=== PATIENT | male | born 1980 | race Caucasian/White ===

== ENCOUNTER 2020-03-24 09:00 | Outpatient (CLI) | payer OTHER, SELFPAY ==
--- NOTE | 2020-03-24 09:15 | FL_ITS ---
WS: [id number] DOUBLE CONTRAST UPPER GI EXAMINATION HISTORY: K21.9 Gastro-esophageal reflux disease without esophagitis COMPARISON: None available. FLUOROSCOPY TIME: 2.9 minutes. Dormitory Keeper film reveals normal distribution of gas throughout the GI tract. No suspicious masses or calcif ications. Barium mixture traversed normally throughout the esophagus. No filling defects within the stomach. Du odenal bulb was normally distensible and pliable. No gastroesophageal reflux No hiatal hernia was demonstrated on this exam. FL/FL upper GI w air* [id number] IMPRESSION: Normal upper GI examination.
== END 2020-03-24 09:01 | disposition home or self-care (01) ==
PROVIDERS: Family Provider Nurse Practitioner Family; PCP Surgery; Visit Provider Surgery
DX: K21.9 Gastro-esophageal reflux disease without esophagitis (principal)
CPT/HCPCS: 74246

== ENCOUNTER 2020-05-07 14:40 | Outpatient (CLI) | payer OTHER, BC, SELFPAY ==
[2020-05-07 15:34] LABS: Basophils % 0.3 %; Eosinophils % 0.5 %; Hematocrit 43.3 % (42.0-52.0); Hemoglobin 14.5 g/dL (11.7-16.6); Lymphocytes # 2.6 10^3/uL (0.8-4.8); Lymphocytes % 34.1 %; Mean Corpuscular HGB Conc 33.5 g/dL (30.0-36.0); Mean Corpuscular Hemoglobin 30.1 pg (28.0-34.0); Mean Corpuscular Volume 89.8 fL (80-94); Monocytes # 0.5 10^3/uL (0.2-0.9); Monocytes % 7.1 %; Neutrophils # 4.34 10^3/uL (1.8-7.7); Neutrophils % 57.7 %; Nucleated Red Blood Cells % 0 %; Platelet Count 270 10^3/cmm (130-400); Red Blood Count 4.82 10^6/uL (4.1-5.3); Red Cell Distribution Width 12.3 % (12.1-15.1); White Blood Count 7.5 10^3/uL (4.0-10.0)
[2020-05-07 15:57] LABS: Estmated Average Glucose 154
[2020-05-07 16:12] LABS: Alanine Aminotransferase 67 U/L (0-41); Albumin Level 4.8 g/dL (3.5-5.2); Alkaline Phosphatase 81 IU/L (40-130); Aspartate Amino Transferase 44 U/L (0-40); Blood Urea Nitrogen 16 mg/dL (6-20); Carbon Dioxide 25 mmol/L (22-29); Chloride 100 mmol/L (98-107); Chol HDL Ratio 6.37 mg/dL (1.0-5.00); Cholesterol 172 mg/dL (0-200); Ferritin 357 ng/mL (30-400); Globulin 3.2 g/dL (1.3-4.6); Glomerular Filtration Rate 124.3 mL/min (90-130); Glucose 104 mg/dL (65-115); HDL Cholesterol 27 mg/dL (60-100); Iron 46 ug/dL (59-158); LDL Cholesterol Calculated 106 mg/dL (50-129); LDL HDL Ratio 3.93 RATIO (0.00-3.22); Lipase 29 U/L (13-60); Magnesium 2.2 mg/dL (1.7-2.3); Osmolality Calculated 285 mOsm/kg (285-295); Percent Saturation 12.9 % (20-50); Phosphorus 4.4 mg/dL (2.5-4.5); Sodium 137 mmol/L (136-145); Thyroid Stimulating Hormone 2.17 uIU/mL (0.27-4.20); Total Bilirubin 0.2 mg/dL (0.15-1.2); Total Iron Binding Capacity 356 mcg/dl; Triglycerides 193 mg/dL (0-150); Unsaturated Iron Binding 310 ug/dL (112-347); Vitamin B12 748 pg/mL (232-1245)
[2020-05-07 16:30] LABS: Calcium 9.9 mg/dL (8.5-10.5); Parathyroid Hormone 35.3 pg/mL (15-65)
[2020-05-07 16:40] LABS: Folate Level 12.6 ng/mL (4.5-32.2)
== END 2020-05-07 14:41 | disposition home or self-care (01) ==
LOC: LAB 14:52
PROVIDERS: PCP Surgery; Visit Provider Surgery
DX: E88.81 Metabolic syndrome and other insulin resistance (principal); E78.5 Hyperlipidemia, unspecified; E66.9 Obesity, unspecified
CPT/HCPCS: 36415; 80053; 80061; 82310; 82607; 82728; 82746; 83036; 83540; 83550; 83690; 83735; 83970; 84100; 84443; 85025; 87635

== ENCOUNTER 2020-05-13 11:18 | Inpatient (IN) | payer OTHER, BC, SELFPAY ==
[2020-05-12 12:49] VITALS: BMI 45.4
[2020-05-13] VITALS (18 sets, daily range): BP systolic 142–193; BP diastolic 76–102; PULSE 76–108; RESP 16–24; TEMP 36.4–37.2; O2SAT 91–100
[2020-05-13 07:02] LABS: Glucose Point of Care 117 mg/dL (70-110)
--- NOTE | 2020-05-13 07:02 | P.ANESASSM_ITS ---
Pre-Anesthetic Assessment Pre-Anesthetic Assessment: Height/Weight: Height 1.83 m Weight 151.953 kg Preop Diagnosis: Morbid obesity Proposed Procedure: Operation Date: 05/13/20 08:20 Proposed Procedures p Laparoscopic Gastrectomy Sleeve w/ EGD [id number] E66.01(Not Applicable) - Isma Linda MD s EGD(Not Applicable) - Isma Linda MD Familial anesthetic complications: None Was Beta Linette taken within 24 hours: N/A Last intake: NPO > 8 hrs Social: Social History: No alcohol and No tobacco Exam: Pre-Anes Outpt Exam: alert, oriented x 3, clear to auscultation bilaterally and regular rate & rhythm Airway: Cervical ROM: WNL MP: 3 Dentition: Other (missing teeth, pulled teeth) Additional comments: large neck circumference CV/HEM: Comments: 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 Says it never required surgical intervention and has has never been restricted in any activities in his life Metabolic: Metabolic: DM and Hyperlipidemia Anesthetic Plan: ASA status: 2 Anesthesia: General Risk of > 500 ml blood loss (7ml/kg in children): No PFSH Anesthesia PFSH: Medical History Diabetes Hyperlipidemia Hypertension Morbid obesity Family History Other Diabetes Hypertension Denies family history of Anesthesia complication Bleeding disorder Social History Smoking and tobacco status: never smoked Alcohol intake: current Alcohol intake frequency: holidays/special occasions only Alcohol type: beer and hard liquor Adopted: No Caregiver/support person: Yes Lives independently: Yes Household members: spouse Housing: House Marital status: service: No Current occupational status: employed Current occupational exposures/hazards: No Pets and animals: No History of recent travel: No Sexually active: Yes Judy/Yazdanism: [employer] Special judy needs: No Agree to transfusion: Yes Financial difficulty paying for basics: Decline to Answer Data Anesthesia Other Labs: Laboratory Results - last 48 hr 05/13/20 06:58 POC Glucose 117 Cardiac Studies: No Data to Display
[2020-05-13] MEDS: heparin 5,000 unit/mL INJ 1 mL 5000 UNIT SUBCUT ×2 (07:06→23:31)
[2020-05-13] MEDS: scopolamine 1.5 Patch 1 PATCH TRANSDERMA (07:06)
[2020-05-13] MEDS: sodium chloride 0.9% 1,000 ML 999 ML IV (07:06)
[2020-05-13] MEDS: pantoprazole 40 mg SDV IVP ×2 (07:33→18:26)
--- NOTE | 2020-05-13 07:49 | W.PM.OPSUD ---
Surgery/Procedure H&P Update DATE OF PROCEDURE: May 13, 2020 DATE H&P PERFORMED: 05/07/20 H&P UPDATE INFORMATION: I have reviewed H&P completed within last 30 days, I have examined patient prior to procedure and No changes to prior documentation PREOP DIAGNOSIS: Morbid obesity PRIMARY INDICATION FOR PROCEDURE: The same PLANNED PROCEDURE: Operation Date: 05/13/20 08:20 Proposed Procedures p Laparoscopic Gastrectomy Sleeve w/ EGD 11817 63002 E66.01(Not Applicable) - Isma Linda MD s EGD(Not Applicable) - Isma Linda MD
[2020-05-13] MEDS: ondansetron 2 mg/ML SDV 2 mL 4 MG IVP ×3 (07:51→17:43)
[2020-05-13] MEDS: midazolam 1 mg/mL INJ 2 mL 2 MG IVP (07:51)
[2020-05-13] MEDS: sodium chloride 0.9% 1,000 ML 30 ML IV (07:57)
--- NOTE | 2020-05-13 09:32 | SUR.OPER ---
Family Notified Of Patient's Status Via Phone.
--- NOTE | 2020-05-13 11:19 | P.OP_ITS ---
Operative Report Date of procedure: May 13, 2020 Pre-op Diagnosis: Morbid obesity Procedure Done: Laparoscopic vertical sleeve gastrectomy and intraoperative esophagogastroscopy Implants: Large piece of Surgicel towards the distal part of the stomach after taking omentum down Specimens removed/disposition: Subtotal gastrectomy status post gastric sleeve Surgeon: Isma Linda Automotive Tire Worker: Surgical yuri Boswell and Mona Chris Circulating nurses Nettie and Masood Anesthesia: General (Elmer Leslie/Dr. Moon) Estimated blood loss (mL): 50 IV fluids (mL): 1,400 Urine output (mL): 400 Condition: stable Disposition: floor Procedure: Patient was identified in holding area , appropriate pharmacologic DVT prophylaxis was given and preoperative IV fluid hydration, patient was then taken to the operating room where the patient was placed in supine position, intubated by anesthesia prophylactic antibiotics were given per protocol,Time- out was done verifying the patient's name/date of /planned procedure and destination after the procedure, all were in agreement. SCDs confirmed to be functioning, and beta melissa protocol was confirmed. A Rea catheter was inserted by the circulating nurse revealing clear urine. A foot board was applied to secure the patient while the patient is placed in reversed Trendelenburg, all pressure points were padded, and the patient was appropriately secured to the table, anesthesia was asked to rotate the table back and forth to verify that the patient is appropriately secured, and that was the case. The abdomen was prepped and draped under the usual sterile technique. A 1 cm transverse incision was made with a 15 blade scalpel approximately 15 cm below the xiphoid process and 3 cm left of the midline. A 12 mm optical trocar port was placed under direct vision into the peritoneal cavity without evidence of injury to peritoneal structures upon entry. The peritoneal cavity was insufflated with carbon dioxide gas up to 15 mmHg pressure. A 45? angle laparoscopy was placed through the port into the peritoneal cavity there was no significant blood, fluid, or evidence of intra-abdominal injury under direct visualization,Long 5 mm trocars were then used;a 12 mm trocar port was placed in the right epigastric region and a fourth 5 mm trocar port was placed in the mid epigastric region more caudad than and medial to the previous port. I lifted the omentum up to make sure there were no injuries encountered from the initial trocar insertion , and there was not. A Long 5 mm trocar port was placed in the left lateral flank and additional long 5 mm trocar was inserted midway between the left lateral flank trocar and the initial 12 mm trocar , A subxiphoid stab incision was made and dissection into the peritoneum with 5 mm obturator.A grasping laparoscopic clamp was inserted through here and clamped to the right zofia of the diaphragm to elevate The liver for the entirety of the case. Patient was then placed in the reversed Trendelenburg Following this, the greater curvature of the stomach was freed from the omentum using the harmonic scalpel. This division included the short gastric vessels proximally. This dissection was carried from approximately 4 cm-6 cm proximal to the pylorus and extending all the way up to the angle of Hiss. During this process the posterior aspect of the stomach was mobilized from the underlying peritoneum and the posterior aspect of the stomach was well exposed. With the greater curvature of the stomach exposed from within 4-6 cm of the pylorus and extending to the angle of Hiss, which also included the posterior stomach, a 40 Guatemalan standard template passed under direct vision down the esophagus, stomach, and into the first part of the duodenum by the anesthesia provider and under direct guidance and visualization by me,via the laparoscopy. Using the template 40 Guatemalan aligned along the lesser curvature of the stomach and all the way to the first part of the Duodenum,the 40 Guatemalan Bougie was used as a template the laparoscopic vertical gastric sleeve was performed starting fr om a point about 5 cm from the pylorus along the greater curvature.Using the Pulcifer Laparoscopic BRANDYN linear cutting stapler with Seam guarded enforcement, a series of jose were used to transect the stomach in a vertical fashion along the left side of the template., Care was taken not to narrow the angularis Through the entire division of the stomach using the staplers,the template was always checked to be in good place and well aligned to the lesser curvature while dividing the stomach. This was carried all the way to the angle of Hiss.Green loads were used for all stapler loads. The staple line along the remaining tubularized stomach was tested for leaks and bleeding under direct vision as the 40 Guatemalan template was removed (and there was no evidence of blood on the tip of the template) by a standard diagnostic EGD via the mouth by me after I scrubbed out,insufflation was achieved and the staple line submerged under saline, meanwhile a clamp was applied distally onto the end of the tubularized stomach to allow insufflation test for leak the clamp was held in place by my manager surgical. There was no evidence of leak .There was adequate hemostasis along the staple line.EGD was taken out at this point after deflation of the tubularized stomach. At that point I scrubbed back in; The transected partial stomach, which included the greater curvature, was removed from the peritoneum through the first 12 mm trocar site, and was sent for permanent pathology Prior to closure of the fascia. A final look laparoscopy identified no injuries. I elected to keep the large piece of Surgicel in place at the site of the dissection of the distal part of the stomach towards the greater omentum but there was no active bleeding. Noticed some devascularization towards the superior pole of the Spleen yet was stable. An interrupted #1 PDS suture on a granny needle suture passer was used to close the right epigastric and the other 12 mm trocar left of the midline fascial de fects under direct visualization. The other trocars were removed under direct vision and no evidence of bleeding was identified. The pneumoperitoneum was decompressed. All skin incisions were irrigated with saline, then closed with jose, followed by application of sterile dressings.The patient was extubated and transferred to the recovery room with normal vital signs. All counts of instruments and sponges and needles were completed at the end of the procedure I was present for the whole entire procedure
--- NOTE | 2020-05-13 11:39 | SUR.PHASEI ---
PT TO PACU EARLIER , SLEEPS WITH GOOD RESP EFFORT PT ABD LARGE SOFT WITH 6 SITES WITH BANDAIDS , UMBILICAL SITE WITH SOME DRAINAGE MARKED BUT D/I, BILAT SCDS ON , NO CREPITIS NOTED TO NECK OR SHOULDER AREA, PT NOW AWAKES AND VERBALIZED NO PAIN OR NAUSEA, PT RESPONDS APPROPRIATELY, VSS PT NOW ON 3LNC
--- NOTE | 2020-05-13 11:50 | ANE.PACU2 ---
Inpatient post-anesthesia follow up: Airway intact: Yes Vital signs: Temperature 98.7 F Pulse Rate 103 Respiratory Rate 17 Blood Pressure 148/89 Pulse Oximetry 90 Oxygen Delivery Me thod Room Air Oxygen Flow Rate 3 Fraction of Inspir ed Oxygen Hydration adequate: Yes Nausea and vomiting: No Pain level: 3 Mental status: Baseline
[2020-05-13] MEDS: sodium chloride 0.9% 1,000 ML 150 ML IV ×2 (12:09→18:28)
[2020-05-13] MEDS: morphine 4 mg/mL SDV 1 mL IVP ×4 (12:27→20:46)
--- NOTE | 2020-05-13 14:47 | PC.NURSE ---
patient ambulated in room to help with gas pain
[2020-05-13] MEDS: labetalol 5 mg/mL SDV 20mL 10 MG IVP (16:31)
--- NOTE | 2020-05-13 16:36 | ECG_ITS ---
[facility] Test Date: 2020-05-13 Pat Name: Kareem Page Department: Room: 256 Gender: Male Renewals Specialist: : 1980 Requested By: Isma Linda Order Number: [id number] Tobar MD: Rai Greene M.D. Measurements Intervals [place] Rate: 99 P: 112 CA: 221 QRS: -26 QRSD: 117 T: 104 QT: 359 QTc: 461 Interpretive Statements SINUS RHYTHM WITH FIRST DEGREE AV BLOCK BORDERLINE LEFT AXIS DEVIATION [QRS AXIS < -20] MODERATE INTRAVENTRICULAR CONDUCTION DELAY [110+ ms QRS DURATION] MODERATE T-WAVE ABNORMALITY, CONSIDER LATERAL ISCHEMIA [-0.1+ mV T WAVE IN I/aVL/V5/V6] No previous ECG available for comparison Electronically Signed On 05-13-2020 22:24:21 AUTOMOBILE REPOSSESSOR by Rai Greene M.D. [id number]
[2020-05-13 17:00] LABS: Glucose Point of Care 155 mg/dL (70-110)
[2020-05-13 17:20] LABS: Troponin(5th) Baseline 8 ng/L (0-15)
--- NOTE | 2020-05-13 17:25 | PC.NURSE ---
Family presented to nurses station with basin and explained patient had vomited blood. Bright red blood seen in basin. Patient care nurse Maria Luisa notified. vitals obtained
[2020-05-13 17:36] LABS: Hematocrit 43.3 % (42.0-52.0); Hemoglobin 14.2 g/dL (11.7-16.6)
--- NOTE | 2020-05-13 18:05 | PC.NURSE ---
At 0523 patient vomited 15ml of bright red blood. Dr Linda notified. Per Dr Linda, continue to monitor and let patient know that this can happen and assurance is the lopez. 0550 patient vomited 110ml of bright red blood. Dr Linda notified. Per Dr Linda, order Reglan 10mg IV Q6H PRN, Protonix 40mg IV BID, Promethazine 12.5mg IM once NOW. Industrial Gas Fitter put orders in.
[2020-05-13] MEDS: promethazine 25 mg/mL SDV 1 mL 12.5 MG IM (18:27)
[2020-05-13] MEDS: metoclopramide 5 mg/mL SDV 2 mL 10 MG IVP (18:27)
--- NOTE | 2020-05-13 18:36 | ECG_ITS ---
[facility] Test Date: 2020-05-13 Pat Name: Kareem Page Department: Room: 256 Gender: Male Sap Bi Architect: : 1980 Requested By: Isma Linda Order Number: [id number] Tobar MD: Rai Greene M.D. Measurements Intervals [place] Rate: 108 P: 66 MO: 202 QRS: -22 QRSD: 122 T: 113 QT: 342 QTc: 459 Interpretive Statements SINUS TACHYCARDIA BORDERLINE LEFT AXIS DEVIATION [QRS AXIS < -20] LEFT VENTRICULAR HYPERTROPHY AND ST-T CHANGE [VOLTAGE CRITERIA PLUS ST/T ABNORMALITY] Compared to ECG 05/13/2020 17:27:56 Left ventricular hypertrophy now present ST (T wave) deviation now present Sinus rhythm no longer present First degree AV block no longer present Intraventricular conduction delay no longer present T-wave abnormality no longer present Possible ischemia no longer present Electronically Signed On 05-13-2020 22:28:42 LENS ASSORTER by Rai Greene M.D. [id number]
[2020-05-13 18:39] LABS: Fibrinogen 381 mg/dL (174-498); INR 1.15 (0.8-1.2); Partial Thromboplastin Time 30.5 SECONDS (23.9-36.7)
--- NOTE | 2020-05-13 18:45 | PC.NURSE ---
Per Dr Linda, can stay at bedside.
[2020-05-13 18:58] LABS: Troponin 5 2HR 8.54 ng/L (0-15); Troponin 5 2HR Delta 0.54 ABS# (0-10)
[2020-05-13] MEDS: lisinopril 20 mg Tablet PO (19:08)
[2020-05-13 20:22] LABS: Glucose Point of Care 185 mg/dL (70-110)
[2020-05-13 22:52] LABS: Troponin 5 6HR 8.64 ng/L (0-15); Troponin 5 6HR Delta 0.64 ng/L (0-12)
[2020-05-14] VITALS (10 sets, daily range): BP systolic 142–168; BP diastolic 77–91; PULSE 93–104; RESP 16–18; TEMP 36.4–37.2; O2SAT 90–95
[2020-05-14] MEDS: morphine 4 mg/mL SDV 1 mL IVP ×4 (02:15→15:08)
[2020-05-14 04:00] LABS: Hematocrit 39.5 % (42.0-52.0); Hemoglobin 12.9 g/dL (11.7-16.6)
[2020-05-14 04:26] LABS: Anion Gap 13.8 (5-19); Blood Urea Nitrogen 12 mg/dL (6-20); Calcium 8.9 mg/dL (8.5-10.5); Carbon Dioxide 26 mmol/L (22-29); Chloride 104 mmol/L (98-107); Glomerular Filtration Rate 106.5 mL/min (90-130); Glucose 173 mg/dL (65-115); Osmolality Calculated 294 mOsm/kg (285-295); Potassium 3.8 mmol/L (3.5-5.1); Sodium 140 mmol/L (136-145)
--- NOTE | 2020-05-14 05:26 | P.PN_ITS ---
Subjective Subjective: Interval history: Patient had an episode of epigastric pain,Hypertension and 2 bouts of small amount of Hematemsis all occured arround two hours frame approxmaitley,managed by medications and work up for potentail chest pain was intatited and everything came back negative. Dr Higgins was consulted for chest pain and Hypertension and conservative meaures was continued.connor the pain triggered patient's symptoms. Overall patient had unevetful night otherwise and rested well.Good UOP and IVF dropped to a 100ml/he because the HT. Vitals/I&O/Wt Last Vital Signs Temp 98.7 F 05/14/20 04:00 Pulse 103 H 05/14/20 04:00 Resp 17 05/14/20 04:00 BP 148/89 05/14/20 04:00 Pulse Ox 90 05/14/20 04:00 05/13/20 05/13/20 05/14/20 14:59 22:59 06:59 Intake Total 1660 / 1660 947.5 / 2607.5 Output Total 1425 / 1425 800 / 2225 Balance 235 / 235 147.5 / 382.5 Weight last 48 hrs Weight 335 lb Physical Exam Narrative: EXAM NARRATIVE: Patient is conscious alert oriented X3 BMI Head and neck examination PERRLA no masses no cervical lymphadenopathy no jaundice Cardiac examination audible S1-S2 no murmurs no gallops no arrhythmias Chest is clear bilateral,abscence of Rhonchi or wheezes,no surgical emphysema Abdomen nontender nondistended soft no organomegaly guarding or rigidity/no signs of peritonitis,dry dressing in place. Extremities no cyanosis no clubbing no edema Urinary Catheter Management^: Rea: Cath Placed During This Visit: yes, but has since been removed by the nurse Reason for Continuing Indwelling Catheter: Not indwelling catheter Urinary Catheter Date of Insertion: 05/13/20 Urinary Catheter Time of Insertion: 08:35 Date Urinary Catheter Removed: 05/13/20 Time Urinary Catheter Discontinued: 11:20 Data : 05/14/20 02:49 05/14/20 02:49 A&P Assessment and plan (1) S/P laparoscopic sleeve gastrectomy: 6 AM patient is a status post laparoscopic sleeve gastrectomy 05/13/2020 We will hold off heparin for now Encourage ambulation Incentive spirometer every hour Ice chips for now We will follow on upper GI study 1030 Patient can be started on clear liquid diet Assurance and education All questions have been answered and all concerns have been addressed to patient's satisfaction. Status: Acute Attestations Medical Necessity Statement*: Inpatient hospitalization for medical and surgic al care Time Spent in Patient Care: (>than 50% of time spent in counselling and/or direct pt care on unit) . Coding Level of Care Code Acute Microsoft Exchange Architect for Chg Fwd Diagnoses S/P laparoscopic sleeve gastrectomy Z98.84
[2020-05-14] MEDS: sodium chloride 0.9% 1,000 ML 150 ML IV (05:34)
[2020-05-14] MEDS: pantoprazole 40 mg SDV IVP ×2 (06:24→16:25)
[2020-05-14] MEDS: metoclopramide 5 mg/mL SDV 2 mL 10 MG IVP (06:28)
[2020-05-14 06:41] LABS: Glucose Point of Care 172 mg/dL (70-110)
--- NOTE | 2020-05-14 07:24 | USCV_ITS ---
CamiloKareem Age: 39 Gender: M : 1980 Exam Date: 05/14/2020 10:08 Ordering Phys: Demarco Lundberg MD Technologist: Luis Burger Exam Location: [facility] [place] Indication: CHEST PAIN BP: 156 / 78 HR: 95 Rhythm: Sinus Technical Quality: Adequate MEASUREMENTS (Male / Female) Normal Values 2D ECHO LV Diastolic Diameter PLAX 4.9 cm 4.2 - 5.9 / 3.9 - 5.3 cm LV Systolic Diameter PLAX 3.4 cm IVS Diastolic Thickness 1.1 cm 0.6 - 1.0 / 0.6 - 0.9 cm IVS Systolic Thickness 2.1 cm LVPW Diastolic Thickness 1.5 cm 0.6 - 1.0 / 0.6 - 0.9 cm LVPW Systolic Thickness 1.9 cm LVOT Diameter 2.2 cm LV Ejection Fraction 2D Teich 58.3 % LV Ejection Fraction MOD 2C 44.4 % LV Ejection Fraction 2C AL 45.0 % LA Diameter 4.7 cm LA Width 4.5 cm LA Height 5.8 cm RA Width 4.3 cm RA Height 5.0 cm Aorta at Sinotubular Diameter 4.4 cm M-MODE LV Diastolic Diameter MM 6.4 cm 4.2 - 5.9 / 3.9 - 5.3 cm LV Systolic Diameter MM 4.1 cm LV Ejection Fraction MM Teich 64.3 % IVS Diastolic Thickness MM 1.5 cm 0.6 - 1.0 / 0.6 - 0.9 cm IVS Systolic Thickness MM 2.2 cm LVPW Diastolic Thickness MM 1.6 cm 0.6 - 1.0 / 0.6 - 0.9 cm LVPW Systolic Thickness MM 2.4 cm RV Diastolic Diameter MM 2.2 cm Aortic Annulus Diameter 4.8 cm LA Ao Ratio MM 1.0 MV E Point Septal Separation 0.6 cm DOPPLER AV Peak Velocity 161.0 cm/s LVOT Peak Velocity 130.0 cm/s AV Area Cont Eq vti 3.6 cm squared AV Area Cont Eq pk 3.2 cm squared MV Area PHT 5.0 cm squared Mitral E to A Ratio 1.1 MV E' Velocity 83.7 cm/s Mitral E to LV E' Septal Ratio 9.9 TR Peak Velocity 180.7 cm/s TR Peak Gradient 13.1 mmHg TV Peak E Velocity 93.0 cm/s Right Atrial Pressure 3.0 mmHg Pulmonary Artery Systolic Pressu 16.1 mmHg PV Peak Velocity 156.0 cm/s FINDINGS Left Ventricle This is a limited quality echocardiogram. Grossly LV systolic function appears to be normal. Regional wall motion abnormalities cannot be assessed because of limited visualization. Cannot assess diastolic function. Right Ventricle Grossly normal in size. Cannot assess function because of limited visualization. Right Atrium Not well-visualized Left Atrium Not well-visualized Mitral Valve Not well-visualized. Grossly normal no evidence of mitral regurgitation. Aortic Valve Not well-visualized. No significant stenosis or regurgitation is noted. Tricuspid Valve Not well-visualized. Insufficient TR jet to calculate RVSP. Pulmonic Valve Not well-visualized. Pericardium Grossly normal. Aorta Ascending aorta is dilated and measures at 4.3 cm. CONCLUSIONS There is a limited quality echocardiogram with poor visualization of cardiac structures. Grossly LV systolic function appears to be normal. Cannot assess regional wall motion abnormalities because of limited visualization. Poor visualization of valvular structures. No significant Doppler abnormalities noted. Ascending aorta is dilated and measures at 4.3 cm. No comparison studies are available. Solis Pike MD (Electronically Signed) Final Date: 14 May 2020 18:25 S
--- NOTE | 2020-05-14 08:00 | FL_ITS ---
WS: [id number] UPPER GI TECHNICAL: Single contrast upper GI FLUOROSCOPY TIME: 0.8 minutes CLINICAL INFORMATION: Status Post Gastric Sleeve COMPARISON: None. FINDINGS: Postoperative changes gastric sleeve procedure. Normal GE junction. Normal postoperative ga stric sleeve configuration to the stomach. Proximal duodenum and duodenal C-loop is normal in appeara nce. Normal gastric emptying. No evidence of leak. FL/FL upper GI series [id number] IMPRESSION: Normal postoperative gastric sleeve. No evidence of leak. Normal gastric emptyi ng
[2020-05-14] MEDS: diatrizoate meglumine 30 mL Sol PO ×2 (09:15→09:16)
[2020-05-14] MEDS: lisinopril 20 mg Tablet PO ×2 (09:16→16:24)
[2020-05-14 10:40] LABS: Glucose Point of Care 160 mg/dL (70-110)
--- NOTE | 2020-05-14 10:48 | PC.NURSE ---
Rcvd verbal order from Dr Linda for Clear liquid diet and lower NS IV to 50ml/hr.
--- NOTE | 2020-05-14 14:20 | PM.CONSULT ---
Providers/Reason For Consult Consulting Physican/Specialty*: Surgery Reason for Consult*: Chest pain Attending Physician: Isma Linda MD Primary Care Provider: MARILOU HOLCOMB MD History of Present Illness History of Present Illness Kareem Page is a 39 year old male with a past medical history of noninsulin-dependent type 2 diabetes mellitus, hypertension, hyperlipidemia, morbid obesity, currently admitted to [facility] for status post laparoscopic sleeve gastrectomy, postoperatively was having some episodes of chest pain hospitalist team was consulted for chest pain. Patient tells me that he works in a automotive shop, he works with [employer], his job is very physically demanding, denies any chest pain with exertion or with work. He also plays golf with his friends, no chest pain with physical activity. Denies a history of any history of chest pain, no significant family history of CAD, no history of strokes, no history of DVTs, no history of PE. Postoperatively patient had minimal hematemesis and epigastric pain. No chest pain overnight, no chest pain this morning, no shortness of breath, is on room air. Review of Systems Const: Denies: fever(s), chills, fatigue or malaise Eyes: Denies: change in vision or blurry vision ENMT: Denies: nasal congestion Card: Reports: chest pain; Denies: palpitations, irregular heart rhythm or edema Resp: Denies: dyspnea, productive cough, non-productive cough or wheezing GI: Denies: abdominal pain, nausea, vomiting, hematemesis, diarrhea, constipation, hematochezia or melena : Denies: flank pain, difficulty urinating, dysuria or urinary frequency Musc: Denies: neck pain or back pain Skin/Breast: Denies: rash Neuro: Denies: headache(s), dizziness or vertigo Psych: Denies: anxiety or depression Endo: Denies: polyuria or polydipsia Meds/Allergies Home Medications and Allergies Home Medications Medication Instructions Recorded Confirmed Last Taken Type atorvastatin 20 mg tablet 20 mg PO DAILY 01/10/20 05/13/20 05/11/20 History dulaglutide 0.75 mg/0.5 mL 0.125 mg SUBCUT .weekly ml 02/07/20 05/13/20 05/12/20 History subcutaneous pen injector gemfibrozil 600 mg tablet 600 mg PO BID 0805/13/20 05/11/20 History glipizide 10 mg tablet 10 mg PO DAILY 02/07/20 05/13/20 05/11/20 History lisinopril 20 mg tablet 20 mg PO DAILY 02/07/20 05/13/20 05/11/20 History metformin 500 mg tablet 1,000 mg PO BID tab 02/07/20 05/13/20 05/11/20 History Allergies Allergy/AdvReac Type Severity Reaction Status Date / Time No Known Allergies Allergy Verified 05/08/20 07:43 Current Medications Current Medications Generic Name Dose Route Start Last Admin Trade Name Freq PRN Reason Stop Dose Admin Acetaminophen 1,000 mg in 100 mls @ 400 mls/hr 05/13/20 15:00 05/13/20 16:41 Ofirmev IV 400 mls/hr Q8H PRN Administration PAIN Sodium Chloride 1,000 mls @ 50 mls/hr 05/14/20 10:45 05/14/20 11:32 Sodium Chloride 0.9% IV Not Given .Q20H MANSOOR Insulin Aspart 0 unit 05/13/20 21:00 05/13/20 20:46 Insulin Aspart 100 Unit/1 Ml SUBCUT 2 unit BEDTIME MANSOOR Administration Protocol Lisinopril 20 mg 05/13/20 20:00 05/14/20 09:16 Lisinopril 20 Mg Tablet PO 20 mg DAILY MANSOOR Administration Metoclopramide HCl 10 mg 05/13/20 18:11 05/14/20 06:28 Metoclopramide 5 Mg/Ml Sdv 2 Ml IVP 10 mg Q6H PRN Administration NAUSEA AND VOMITING Morphine Sulfate 4 mg 05/13/20 11:25 05/14/20 09:18 Morphine 4 Mg/Ml Sdv 1 Ml IVP 4 mg Q2H PRN Administration SEVERE PAIN Ondansetron HCl 4 mg 05/13/20 11:25 05/13/20 17:43 Ondansetron 2 Mg/Ml Sdv 2 Ml IVP 4 mg Q6H PRN Administration NAUSEA AND VOMITING Pantoprazole Sodium 40 mg 05/13/20 18:15 05/14/20 06:24 Pantoprazole 40 Mg Sdv IVP 40 mg Q12H MANSOOR Administration Scopolamine 1 patch 05/13/20 11:30 05/13/20 12:04 Scopolamine 1.5 Patch TRANSDERMA Not Given Q3D MANSOOR PFSH Acute PFSH: Medical History (Updated 05/14/20 @ 14:25 by Demarco Lundberg MD) Diabetes Hyperlipidemia Hypertension Morbid obesity Family History Other Diabetes Hypertension Denies family history of Anesthesia complication Bleeding disorder Social History Smoking and tobacco status: never smoked Alcohol intake: current Alcohol intake frequency: holidays/special occasions only Alcohol type: beer and hard liquor Adopted: No Caregiver/support person: Yes Lives independently: Yes Household members: spouse Housing: House Marital status: service: No Current occupational status: employed Current occupational exposures/hazards: No Pets and animals: No History of recent travel: No Sexually active: Yes Judy/Zoroastrian: Religion Special judy needs: No Agree to transfusion: Yes Financial difficulty paying for basics: Decline to Answer Vitals/I&O/Wt Last Vital Signs Temp 98.9 F 05/14/20 11:18 Pulse 100 05/14/20 11:18 Resp 16 05/14/20 11:18 BP 142/77 05/14/20 11:18 Pulse Ox 92 05/14/20 11:18 05/13/20 05/14/20 05/14/20 22:59 06:59 14:59 Intake Total 947.5 / 2607.5 2800 / 5407.5 360 / 360 Output Total 800 / 2225 600 / 600 Balance 147.5 / 382.5 2800 / 3182.5 -240 / -240 Physical Exam Const: COMMON NORMALS: no acute distress and patient oriented x3 GENERAL APPEARANCE: cooperative and comfortable HENMT: COMMON NORMALS: normocephalic HEAD & SCALP: normocephalic Eye: COMMON NORMALS: Equal, round and reactive pupils present GENERAL EYE: appearance normal, both eyes and all related structures PUPIL: Yes Equal, round and reactive pupils present Neck/C-Spine: COMMON NORMALS: full ROM, no lymphadenopathy, no JVD and Thyroid normal THYROID: Thyroid normal Lymph: LYMPHATIC: no lymphadenopathy noted Resp: COMMON NORMALS: normal respiratory effort, No retractions, No use of accessory muscles and clear to auscultation bilaterally AUSCULTATION: clear to auscultation bilaterally Cardio: COMMON NORMALS: no JVD, regular rate, regular rhythm, S1 normal heart sound present, S2 normal heart sound present, No gallops present (Cardio), No clicks present (Cardio) and No murmurs present (Cardio) RATE: regular rate RHYTHM: regular rhythm HEART SOUNDS: S1 normal heart sound present and S2 normal heart sound present GI: COMMON NORMALS: Normal to inspection, nondistended, normoactive bowel sounds present, non-tender and No hepatosplenomegaly present PALPATION: Yes Tenderness to palpation present (GI) Details: LLQ, RLQ, LUQ and RUQ and Yes No hepatosplenomegaly present Extremity: COMMON NORMALS: normal to inspection, full ROM and no pedal edema Neuro: COMMON NORMALS: patient oriented x3, CN's II-XII intact bilaterally, moves all extremities and no focal motor deficits Psych: COMMON NORMALS: mental status grossly normal, Normal thought process present and cooperative THOUGHT PROCESS: Normal thought process present Urinary Catheter Management^: Rea: Cath Placed During This Visit: yes, but has since been removed by the nurse Reason for Continuing Indwelling Catheter: Not indwelling catheter Urinary Catheter Date of Insertion: 05/13/20 Urinary Catheter Time of Insertion: 08:35 Date Urinary Catheter Removed: 05/13/20 Time Urinary Catheter Discontinued: 11:20 A&P Assessment and plan (1) Chest pain: -Atypical chest pain -Cardiovascular risk factors include, morbid obesity, hypertension, hyperlipidemia, diabetes -EKG did show T wave inversions in lateral leads, mild ST depressions in lateral leads, -6-hour troponin 8.64, delta 0.64 -No active chest pain -Is on atorvastatin 20 mg daily -Anticoagulation is on hold given hematemesis -Chest pain seems more epigastric in nature, postoperative pain -Plan: -Monitor for chest pain -Continue telemetry monitoring -Cardiac echocardiogram ordered -If patient were to have recurrent episodes of chest pain, will do repeat EKG and troponin series -Can consider cardiac stress testing based on clinical progress -The other thought is is that he is at significant risk of DVTs and PEs, will consider CT angiogram of the chest and bilateral extremity ultrasounds Status: Acute (2) S/P laparoscopic sleeve gastrectomy: Postop day 1 Pain control as per surgical service Anticoagulation as per surgical service Status: Acute (3) Morbid obesity: Status: Chronic Coding Level of Care Code Acute Metal Inspector for Chg Fwd Diagnoses Chest pain R07.9 S/P laparoscopic sleeve gastrectomy Z98.84 Morbid obesity E66.01
[2020-05-14] MEDS: amlodipine 5 mg Tablet PO (16:24)
[2020-05-14 16:51] LABS: Glucose Point of Care 126 mg/dL (70-110)
--- NOTE | 2020-05-14 16:51 | PM.DCS ---
Discharge Providers Date of Admission: 05/13/20 11:18 Date of Discharge: May 14, 2020 Attending Provider at Admission: Isma Linda MD Attending Provider at Discharge: Isma Linda MD Primary Care Provider: MARILOU HOLCOMB MD Diagnoses at Discharge Discharge Diagnosis (1) Chest pain: Status: Acute Permanent problem details: Resolved (2) S/P laparoscopic sleeve gastrectomy: Status: Resolved Permanent problem details: Discharge home Follow nutrition guidelines Antinausea medication Return to weight loss surgery office in 1 week (3) Morbid obesity: Status: Chronic Permanent problem details: Follow-up at weight loss surgery Reason for Visit Reason for Visit: laparoscopic sleeve gastrectomy Hospital Course Hospital Course Patient undergone uneventful laparoscopic vertical sleeve gastrectomy, evening of surgery started to encounter epigastric pain and cardiac work-up was done in the form of repeated serum troponin levels which came back normal and serial EKGs also hospitalist consultation and conservative measures were the way to go. Patient also had a bout of emesis in the form of frothy bloody aspirate as at the same time he did encounter higher blood pressure which likely the cause of this episode of hematemesis. Continue to have stable vital signs otherwise and stable H&H and good urine output. Patient continues to be on close cardiac monitoring and had no acute events overnight. Following the undergone an upper GI study that showed normal post gastric sleeve anatomy. Echocardiogram was requested by the hospitalist service and showed: There is a limited quality echocardiogram with poor visualization of cardiac structures. Grossly LV systolic function appears to be normal. Cannot assess regional wall motion abnormalities because of limited visualization. Poor visualization of valvular structures. No significant Doppler abnormalities noted. Ascending aorta is dilated and measures at 4.3 cm. No comparison studies are available. Overall patient maintained to have stable vital signs appropriate blood pressure control and appropriate pain control was achieved. Patient tolerated well p.o. intake and continued to have appropriate blood glucose monitoring. As he has been on a sliding scale of insulin. Patient did not have more bouts of hematemesis and was discharged safely with the plan to follow-up at with surgery office in 1 week and education was given to the patient with regard to the nutrition guidelines. Also patient was discharged on antinausea medications and pain medications as well. Physical Exam Urinary Catheter Management^: Rea: Cath Placed During This Visit: yes, but has since been removed by the nurse Reason for Continuing Indwelling Catheter: Not indwelling catheter Urinary Catheter Date of Insertion: 05/13/20 Urinary Catheter Time of Insertion: 08:35 Date Urinary Catheter Removed: 05/13/20 Time Urinary Catheter Discontinued: 11:20 Discharge Data Data Completed and Pending: Completed Studies During Hospitalization Category Date Time Status [place] upper GI serkarrie s [id number] Routine Exams 05/14/20 08:00 Completed Pathology: Surgic al [PTH] Routine Pth 05/13/20 11:18 Completed Pending at discharge Category Date Time Status ES surgery / GI i mages Routine Exams 05/13/20 07:58 Taken Complete Blood Co unt w/Auto AM LABS Lab 05/15/20 04:00 Ordered Complete Blood Co unt w/Auto AM LABS Lab 05/16/20 04:00 Ordered Complete Blood Co unt w/Auto AM LABS Lab 05/17/20 04:00 Ordered Comprehensive Met abolic Panel AM LA BS Lab 05/15/20 04:00 Ordered Comprehensive Met abolic Panel AM LA BS Lab 05/16/20 04:00 Ordered Comprehensive Met abolic Panel AM LA BS Lab 05/17/20 04:00 Ordered Magnesium AM LABS Lab 05/15/20 04:00 Ordered Magnesium AM LABS Lab 05/16/20 04:00 Ordered Magnesium AM LABS Lab 05/17/20 04:00 Ordered Phosphorus AM LAB S Lab 05/15/20 04:00 Ordered Phosphorus AM LAB S Lab 05/16/20 04:00 Ordered Phosphorus AM LAB S Lab 05/17/20 04:00 Ordered CV echo complete* [id number] Routine Ultrasound 05/14/20 07:24 Taken Labs from last 24 hours 05/14/20 05/14/20 05/14/20 16:47 10:29 06:28 Hgb Hct Plt Count PT INR APTT Fibrinogen Sodium Potassium Chloride Carbon Dioxide Anion Gap BUN Creatinine GFR Calculation Glucose POC Glucose 126 160 172 Calculated Osmolal ity Calcium Troponin T Baselin e Troponin T 120 Min [place] Delta Troponin T Troponin T Hi Sens 6Hr Troponin T Hi Sens 6Hr Delta 05/14/20 05/14/20 05/13/20 02:49 02:49 22:12 Hgb 12.9 Hct 39.5 L Plt Count PT INR APTT Fibrinogen Sodium 140 Potassium 3.8 Chloride 104 Carbon Dioxide 26 Anion Gap 13.8 BUN 12 Creatinine 0.8 GFR Calculation 106.5 Glucose 173 H POC Glucose Calculated Osmolal ity 294 Calcium 8.9 Troponin T Baselin e Troponin T 120 Min [place] Delta Troponin T Troponin T Hi Sens 6Hr 8.64 Troponin T Hi Sens 6Hr Delta 0.64 05/13/20 05/13/20 05/13/20 20:08 18:10 16:46 Hgb Hct Plt Count Not Reportable PT 15.10 H INR 1.15 APTT 30.5 Fibrinogen 381 Sodium Potassium Chloride Carbon Dioxide Anion Gap BUN Creatinine GFR Calculation Glucose POC Glucose 185 Calculated Osmolal ity Calcium Troponin T Baselin e Troponin T 120 Min [place] 8.54 Delta Troponin T 0.54 Troponin T Hi Sens 6Hr Troponin T Hi Sens 6Hr Delta 05/13/20 05/13/20 05/13/20 16:46 16:46 16:41 Hgb 14.2 Hct 43.3 Plt Count PT INR APTT Fibrinogen Sodium Potassium Chloride Carbon Dioxide Anion Gap BUN Creatinine GFR Calculation Glucose POC Glucose 155 Calculated Osmolal ity Calcium Troponin T Baselin e 8 Troponin T 120 Min [place] Delta Troponin T Troponin T Hi Sens 6Hr Troponin T Hi Sens 6Hr Delta Procedures Performed: Upper GI study ; FINDINGS: Postoperative changes gastric sleeve procedure. Normal GE junction. Normal postoperative gastric sleeve configuration to the stomach. Proximal duodenum and duodenal C-loop is normal in appearance. Normal gastric emptying. No evidence of leak. [place] upper GI series [id number] IMPRESSION: Normal postoperative gastric sleeve. No evidence of leak. Normal gastric emptying Vitals: Last Vital Signs Temp 98.7 F 05/14/20 15:07 Pulse 104 H 05/14/20 15:07 Resp 18 05/14/20 15:08 BP 168/91 05/14/20 15:07 Pulse Ox 94 05/14/20 15:08 Discharge Plan Discharge Patient Disposition: Home Condition: Stable Prescriptions: New Protonix 40 mg tablet,delayed release (DR/EC) 40 mg PO DAILY 30 Days Qty: 30 RF: 2 scopolamine base 1 mg over 3 days patch 3 day 1 patch transdermal Q3D PRN (Reason: nausea and vomiting) 3 Days Qty: 1 RF: 3 Zofran 4 mg tablet 4 mg PO Q6H PRN (Reason: nausea and vomiting) Qty: 30 RF: 1 [place] 5-325 mg tablet 1 tab PO Q6H PRN (Reason: pain) Qty: 28 RF: 0 Continued atorvastatin [Lipitor] 20 mg tablet 20 mg PO DAILY RF: 0 metformin 500 mg tablet 1,000 mg PO BID RF: 0 Trulicity 0.75 mg/0.5 mL pen injector 0.125 mg SUBCUT .weekly RF: 0 lisinopril 20 mg tablet 20 mg PO DAILY RF: 0 glipizide 10 mg tablet 10 mg PO DAILY RF: 0 gemfibrozil 600 mg tablet 600 mg PO BID RF: 0 Discharge Orders: Discharge Order (Routine); Ordered 05/14/20 Ordered By: Isma Linda Referrals: Isma Linda MD [Physician] - (Please call to schedule a follow up appointment in 1 week) Discharge Diet: Clear Liquid Discharge Activity: Limit activity as instructed Patient Instructions: Scopolamine (Absorbed through the skin), Hydrocodone/Acetaminophen (By mouth), Ondansetron (By mouth), Pantoprazole (By mouth) Activity Restrictions/Additional Instructions: 1. Patient can shower after 48 hours from surgery 2. Remove Band-Aids tomorrow and sharp 3. Up and walking as tolerated 4. Do lift more than 5 pounds first 2 weeks after surgery and not more than 25 pounds 6 to 8 weeks after surgery. 5. Do not operate heavy machinery or drive while using pain medications. 6.Contact the office or return to the ER for worsening nausea vomiting fevers or chills, or noticing any redness around incision sites or discharge. 7. Follow on nutrition recommendations per preop seminar Discharge Attestations Time Spent in Discharge Care*: greater than 30 min Specific Discharge Activities: educating patient and educating and/or supporting family/caregiver Status at Discharge: Cognitive status at discharge: cognitively intact, Behavioral status at discharge: cooperative, Functional status at discharge: independent ambulation Overall status at discharge: patient is progressing back to baseline Quality Metrics Clinical Quality Measures During this hospital stay, did patient experience: None Coding Level of Care Code Acute Logistics Engineer for Chg Fwd Diagnoses Chest pain R07.9 S/P laparoscopic sleeve gastrectomy Z98.84 Morbid obesity E66.01
[2020-05-14] MEDS: HYDROcodone-acetaminophen 5-325 mg Tablet 1 TAB PO (17:07)
--- NOTE | 2020-05-14 18:11 | PC.NURSE ---
patient and given discharge instructions and verbalized understanding of instructions. patient taken to private vehicle via wheelchair.
== END 2020-05-14 18:14 | disposition home or self-care (01) | DRG 621 ==
LOC: MEDSURG 14:08
PROVIDERS: Admitting Provider Surgery; PCP Surgery; Visit Provider Surgery
PROC: 0DB64Z3 Excision of Stomach, Percutaneous Endoscopic Approach, Vertical (ICD-10-PCS; CPT 43775; principal; 2020-05-13 08:05)
PROC: 0DJ08ZZ Inspection of Upper Intestinal Tract, Via Natural or Artificial Opening Endoscopic (ICD-10-PCS; CPT 43235; 2020-05-13 08:05)
DX: E66.01 Morbid (severe) obesity due to excess calories (principal); E11.9 Type 2 diabetes mellitus without complications; I10 Essential (primary) hypertension; E78.5 Hyperlipidemia, unspecified; Z68.42 Body mass index [BMI] 45.0-49.9, adult; Z79.84 Long term (current) use of oral hypoglycemic drugs
CPT/HCPCS: 12345; 36415; 36416; 43235; 51702; 74240; 80048; 82962; 84484; 85014; 85018; 85049; 85384; 85610; 85730; 88309; 93005; 93306; 96365; 96372; 96374; 96375; C9113; C9290; J0131; J1644; J1815; J2250; J2270; J2370; J2405; J2550; J2704; J2710; J2765; J3010; J3490; J7030; Q9963

== ENCOUNTER 2020-05-21 08:07 | Emergency (ER) | payer OTHER, BC, SELFPAY ==
[2020-05-21 08:16] VITALS: BP 174/112; PULSE 84; RESP 16; TEMP 36.2; O2SAT 96; BMI 43.4
--- NOTE | 2020-05-21 08:23 | CT_ITS ---
WS: [id number] CT ABDOMEN AND PELVIS NONCONTRAST HISTORY: Right flank/testicle pain TECHNIQUE: Imaging performed through the abdomen and pelvis. Coronal and sagittal reformats are submi tted. All CT scans at [facility] use at least one of these dose optimization techniques: automated exposure control; mA and/or kV adjustment per patient size (includes targeted exams where d ose is matched to clinical indication); or iterative reconstruction. DLP: 2215.17 mGy.cm COMPARISON: None available. Lower thorax: Lung bases are clear. Visualized heart is normal. No hiatal hernia. Liver: Moderate hepatomegaly and hepatic steatosis. No bile duct dilatation or mass identified. Gallbladder: There is increased attenuation layering the gallbladder. Probably a small amount of slud ge. Pancreas: Normal size and attenuation. Normal pancreatic duct. No pancreatitis or mass. Spleen: Spleen is top normal size measuring 14 cm in length. Adrenal glands: Normal. No mass. Right kidney: Mildly enlarged RIGHT kidney with mild perinephric stranding. Mild dilatation of the re nal pelvis and the calyces and proximal ureter secondary to 7 mm stone at the UP junction. The remain ing ureter is normal size. Additional nonobstructing 6 mm calcification in the lower pole. Left kidney: Normal size kidney with no mass or hydronephrosis. Aorta: Normal abdominal aorta, no aneurysm or atherosclerosis. There is a focal collection in the upper mid abdomen closely associated with the prior gastric sleeve procedure. Soft tissue mass with ill-defined borders measures 5.1 x 7.5 cm. There are a few small fo ci of air external to the lumen of the stomach. These foci of air are between the anterior stomach an d the LEFT lobe of the liver. There is also mild inflammatory infiltration of the fat. GI tract: Normal appendix. No GI tract obstruction. Abdominal wall: Negative. No hernia. Pelvis: Bilateral inguinal canals are patent containing fat only. Urinary bladder is negative. Osseous structures: Unremarkable. CT/CT kidney stone [id number] IMPRESSION: 1. Mild RIGHT hydronephrosis secondary to a 7 mm stone at the UP junction. 2. Additional nonobstructing calcification lower pole RIGHT kidney. 3. Ill-defined collection containing air associated with the recent gastric sl eeve procedure. This collection measures 5.1 x 7.5 cm and there are a few adjac ent foci of free air that are not contained within the stomach. Highly suspicio us for perforation and leak associated with the gastric sleeve procedure. Focal ill-defined collection may be a postoperative seroma or hematoma or developing abscess. Recommend evaluation by bariatric surgeon. Notified ANTONIO Mcneill at 05/21/2020 8:46 AM.
--- NOTE | 2020-05-21 08:24 | W.ED.GENADLT ---
HPI - General Adult General: Chief complaint: General Medical Stated complaint: testicle pain, abd pain Time Seen by Provider: 05/21/20 08:19 History of Present Illness: HPI narrative: Patient woke up this morning with right flank pain that radiated from his right flank down to his right testicle he has vomited x2. Still complains about pain in his right flank area not so much in his testicle. Recently had gastric sleeve surgery by Dr. Fisher here in the hospital does have an appointment to be seen today to get jose removed. He states he has had no complication from the surgery up till now. Denies any fever has had some chills. Denies diarrhea cough shortness of breath. Patient denies constipation is currently taking pain medication MD complaint: Right flank pain Onset (ago): hour(s) Location: abdomen and genitals Radiation: flank Severity: moderate Severity scale (1-10): 6 Quality: aching Pain Consistency: constant Relieving factors: none Exacerbating factors: none Associated symptoms: Reports fevers/chills, nausea and vomiting; Deny chest pain, dyspnea, headache(s) or rash Treatments prior to arrival: none Review of Systems Const: Denies: fever(s), chills or body aches Eyes: Denies: change in vision or blurry vision ENMT: Denies: throat pain or nasal congestion Card: Denies: chest pain or dyspnea on exertion Resp: Denies: dyspnea, productive cough or non-productive cough GI: Reports: abdominal pain, nausea and vomiting : Reports: flank pain and other (Right testicle pain); Denies: difficulty urinating Musc: Denies: extremity pain Skin/Breast: Denies: rash Neuro: Denies: headache(s) Psych: Denies: anxiety or depression David/Lymph: Denies: easy bruising PFSH ED PFSH: Medical History (Updated 05/15/20 @ 16:43 by Isma Linda MD) Diabetes Hyperlipidemia Hypertension Morbid obesity Follow-up at weight loss surgery Family History Other Diabetes Hypertension Denies family history of Anesthesia complication Bleeding disorder Social History (Updated 05/21/20 @ 08:22 by Adrián Joshi RN) Smoking and tobacco status: never smoked Alcohol intake: former Substance/Drug Use: never Adopted: No Caregiver/support person: Yes Lives independently: Yes Household members: spouse Housing: House Marital status: service: No Current occupational status: employed Current occupational exposures/hazards: No Pets and animals: No History of recent travel: No Sexually active: Yes Judy/Mandaen: Mu-Ism Special judy needs: No Agree to transfusion: Yes Financial difficulty paying for basics: Decline to Answer Physical Exam Const: COMMON NORMALS: no acute distress, average body habitus and patient oriented x3 HENMT: COMMON NORMALS: normocephalic HEAD & SCALP: normal to inspection and normocephalic FACE & SINUS: normal facial exam Eye: COMMON NORMALS: conjunctivae normal GENERAL EYE: appearance normal, both eyes and all related structures CONJUNCTIVA: Yes conjunctivae normal Neck/C-Spine: COMMON NORMALS: no JVD Chest: COMMONS NORMALS: normal inspection of the chest Resp: COMMON NORMALS: normal respiratory effort and clear to auscultation bilaterally AUSCULTATION: clear to auscultation bilaterally Cardio: COMMON NORMALS: no JVD, regular rate and regular rhythm RATE: regular rate RHYTHM: regular rhythm GI: COMMON NORMALS: Normal to inspection, nondistended, normoactive bowel sounds present PALPATION: Yes Tenderness to palpation present (GI) Details: RLQ : BLADDER/KIDNEY EXAM: Yes CVA tenderness on the right Back/Pelvis: GENERAL BACK: Yes CVA tenderness Extremity: COMMON NORMALS: normal to inspection and full ROM Neuro: COMMON NORMALS: patient oriented x3 Skin: NARRATIVE SKIN EXAM: Abdominal incision intact with no erythema Course Vital Signs: Vital signs: Vital Signs Temperature 97.2 F L 05/21/20 08:16 Pulse Rate 84 05/21/20 08:16 Respiratory Rate 20 H 05/21/20 08:55 Blood Pressure 174/112 05/21/20 08:16 Pulse Oximetry 96 05/21/20 08:16 MDM - General Adult MDM Narrative: Medical decision making narrative: I spoke with Dr. Alanis the radiologist she gave me a verbal report. Spoke with Dr. Cross and then called Dr. Mcmahon. He will get back to me concerning wanting another radiographic study done preferably an upper GI said but he will be in contact with me Lab Data: Labs: Lab Results 05/21/20 Range/Units 08:43 WBC 9.4 (4.0-10.0) 10^3/ uL RBC 4.74 (4.1-5.3) 10^6/u L Hgb 13.8 (11.7-16.6) g/dL Hct 41.3 L (42.0-52.0) % MCV 87.1 (80-94) fL MCH 29.1 (28.0-34.0) pg MCHC 33.4 (30.0-36.0) g/dL RDW 12.3 (12.1-15.1) % Plt Count 417 H (130-400) 10^3/c mm MPV 10.0 (7.4-10.4) fL Neut % (Auto) 64.8 % Lymph % (Auto) 25.1 % Sanborn % (Auto) 7.7 % Eos % (Auto) 1.4 % Baso % (Auto) 0.5 % Neut # (Auto) 6.09 (1.8-7.7) 10^3/u L Lymph # (Auto) 2.4 (0.8-4.8) 10^3/u L Sanborn # (Auto) 0.7 (0.2-0.9) 10^3/u L Eos # (Auto) 0.1 (0.0-0.8) 10^3/u L Baso # (Auto) 0.1 (0.0-0.1) 10^3/u L Nucleated RBC % (a uto) 0 % Nucleated RBCs # 0.0 /100WBC Discharge Plan Discharge Prescriptions: No Action atorvastatin [Lipitor] 20 mg tablet 20 mg PO DAILY RF: 0 metformin 500 mg tablet 1,000 mg PO BID RF: 0 Trulicity 0.75 mg/0.5 mL pen injector 0.125 mg SUBCUT .weekly RF: 0 lisinopril 20 mg tablet 20 mg PO DAILY RF: 0 glipizide 10 mg tablet 10 mg PO DAILY RF: 0 gemfibrozil 600 mg tablet 600 mg PO BID RF: 0 Protonix 40 mg tablet,delayed release (DR/EC) 40 mg PO DAILY 30 Days Qty: 30 RF: 2 scopolamine base 1 mg over 3 days patch 3 day 1 patch transdermal Q3D PRN (Reason: nausea and vomiting) 3 Days Qty: 1 RF: 3 Zofran 4 mg tablet 4 mg PO Q6H PRN (Reason: nausea and vomiting) Qty: 30 RF: 1 Chandler 5-325 mg tablet 1 tab PO Q6H PRN (Reason: pain) Qty: 28 RF: 0 Coding Level of Care Code ED Air Operations Manager for Jean-Paulg Fwd Exam Comprehensive
[2020-05-21] MEDS: ondansetron 2 mg/ML SDV 2 mL 4 MG IVP (08:54)
[2020-05-21] MEDS: sodium chloride 0.9% 1,000 ML 999 ML IV (08:54)
[2020-05-21 08:55] VITALS: RESP 20
[2020-05-21] MEDS: morphine 4 mg/mL SDV 1 mL IVP (08:55)
[2020-05-21 08:58] LABS: Basophils # 0.1 10^3/uL (0.0-0.1); Basophils % 0.5 %; Eosinophils # 0.1 10^3/uL (0.0-0.8); Eosinophils % 1.4 %; Hematocrit 41.3 % (42.0-52.0); Hemoglobin 13.8 g/dL (11.7-16.6); Lymphocytes # 2.4 10^3/uL (0.8-4.8); Lymphocytes % 25.1 %; Mean Corpuscular HGB Conc 33.4 g/dL (30.0-36.0); Mean Corpuscular Hemoglobin 29.1 pg (28.0-34.0); Mean Corpuscular Volume 87.1 fL (80-94); Monocytes # 0.7 10^3/uL (0.2-0.9); Monocytes % 7.7 %; Neutrophils # 6.09 10^3/uL (1.8-7.7); Neutrophils % 64.8 %; Nucleated Red Blood Cells % 0 %; Platelet Count 417 10^3/cmm (130-400); Red Blood Count 4.74 10^6/uL (4.1-5.3); Red Cell Distribution Width 12.3 % (12.1-15.1); White Blood Count 9.4 10^3/uL (4.0-10.0)
[2020-05-21 09:02] VITALS: BP 155/95; PULSE 95; RESP 20; O2SAT 96
--- NOTE | 2020-05-21 09:10 | CT_ITS ---
WS: [id number] CT ABDOMEN WITHOUT CONTRAST HISTORY: Evaluate gastric sleeve for possible perforation. Post Gastrografin evaluation of the gastric sleeve to exclude perforation. Oral contrast has been pro vided. Coronal and sagittal reformats are submitted. All CT scans at [facility] use at le ast one of these dose optimization techniques: automated exposure control; mA and/or kV adjustment pe r patient size (includes targeted exams where dose is matched to clinical indication); or iterative r econstruction. CONTRAST: None DLP: 1368.59 mGy.cm COMPARISON: 05/21/2020. The same day. After ingesting the Gastrografin there is no leak or extravasation at the site of the gastric sleeve. The numerous foci of air and the soft tissue collection are probably related to the Surgicel that is placed during the surgical procedure by Dr. Linda. CT/CT abdomen wo con [id number] IMPRESSION: 1. No active extravasation at the surgical site. Changes at the gastric sleeve are probably all related to the Surgicel that was placed during the surgery. Notified ANTONIO Mcneill at 05/21/2020 9:[address] Linda at 05/21/2020 9:53 AM.
[2020-05-21 09:23] VITALS: RESP 20
[2020-05-21 09:23] LABS: Alanine Aminotransferase 26 U/L (0-41); Albumin Level 4.1 g/dL (3.5-5.2); Alkaline Phosphatase 187 IU/L (40-130); Aspartate Amino Transferase 17 U/L (0-40); Blood Urea Nitrogen 11 mg/dL (6-20); Calcium 9.7 mg/dL (8.5-10.5); Carbon Dioxide 25 mmol/L (22-29); Chloride 99 mmol/L (98-107); Globulin 3.7 g/dL (1.3-4.6); Glomerular Filtration Rate 106.5 mL/min (90-130); Glucose 166 mg/dL (65-115); Lipase 148 U/L (13-60); Osmolality Calculated 291 mOsm/kg (285-295); Sodium 139 mmol/L (136-145); Total Bilirubin 0.3 mg/dL (0.15-1.2); Total Protein 7.8 g/dL (6.6-8.7)
[2020-05-21] MEDS: diatrizoate meglumine 30 mL Sol PO (09:23)
[2020-05-21] MEDS: HYDROmorphone 1 mg/mL INJ 1 mL IVP (09:23)
--- NOTE | 2020-05-21 09:24 | PM.PN ---
Subjective Subjective: Interval history: Patient presents to the emergency department status post laparoscopic vertical sleeve gastrectomy 05/13/2020. Patient presents with right sided abdominal pain and referred to the right testicle with history of repeated nausea and nonbloody vomiting because of the pain. Patient was worked up and was found to have lab values within normal limits yet a CT scan of the abdomen and pelvis showed kidney stone and incidental finding of fluid collection with pockets of gas towards the distal part of the gastric conduit concerning for perforation. I did obtain history physical examination and reviewed the images with Dr. Alanis radiologist and I did place a large piece of Surgicel at the same place where there is a concern of fluid collection that can simulate an abscess formation. Patient reports to me that he has been tolerating well p.o. intake and did not experience any nausea or vomiting except for today when he had this right-sided pain. Denies any fevers chills. Patient was seen and examined in the emergency department room 5 Vitals/I&O/Wt Last Vital Signs Temp 97.2 F L 05/21/20 08:16 Pulse 95 05/21/20 09:02 Resp 20 H 05/21/20 09:02 BP 155/95 05/21/20 09:02 Pulse Ox 96 05/21/20 09:02 Weight last 48 hrs Weight 320 lb Physical Exam Narrative: EXAM NARRATIVE: Patient is conscious alert oriented X3 Mild to moderate distress because of the kidney stone BMI 43.4 Head and neck examination PERRLA no masses no cervical lymphadenopathy no jaundice Abdomen nontender nondistended soft no organomegaly guarding or rigidity/no signs of peritonitis Incisions are healing well Extremities no cyanosis no clubbing no edema Data : 05/21/20 08:43 05/21/20 08:43 A&P Assessment and plan (1) S/P laparoscopic sleeve gastrectomy: 0910 am patient is a status post laparoscopic sleeve gastrectomy 05/13/2020 Based on history taking physical examination and reviewing the chart and images with my personal interpretation and further discussion with Dr. Alanis, likely the patient's finding on CT scan related to the large piece of Surgicel placed at the same site and we will plan to have a repeat CT scan of the abdomen with oral only contrast in the form of Gastrografin and I did discuss with Mr. Anaya nurse practitioner taking care of the patient in the ER and Dr. Alanis Later through the day after a repeat CT scan was done After ingesting the Gastrografin there is no leak or extravasation at the site of the gastric sleeve. The numerous foci of air and the soft tissue collection are probably related to the Surgicel that is placed during the surgical procedure by Dr. Linda. CT/CT abdomen wo con [id number] IMPRESSION: 1. No active extravasation at the surgical site. Changes at the gastric sleeve are probably all related to the Surgicel that was placed during the surgery. From Bariatric surgery standpoint of view patient can be discharged and follow-up with me as scheduled Assurance and education All questions have been answered and all concerns have been addressed to patient's satisfaction. Status: Resolved Attestations Medical Necessity Statement*: Observation the ER Time Spent in Patient Care: (>than 50% of time spent in counselling and/or direct pt care on unit). Coding Level of Care Code Acute Emergency Room Technician for Chg Fwd Diagnoses S/P laparoscopic sleeve gastrectomy Z98.84
[2020-05-21 09:27] LABS: Anion Gap 18.7 (5-19); Potassium 3.7 mmol/L (3.5-5.1)
[2020-05-21 10:04] VITALS: BP 162/76; PULSE 79; RESP 18; O2SAT 95
[2020-05-21] MEDS: tamsulosin 0.4 mg Capsule 0.8 MG PO (10:07)
[2020-05-21 10:25] LABS: Lactate (Lactic Acid level) 1.2 mmol/L (0.5-2.2)
[2020-05-21 10:39] LABS: Add Urine Culture? Yes; Add Urine Microscopic? YES; Bacteria Urine 2+ /hpf; Bilirubin Urine Neg (Negative); Blood Urine 3+ (Negative); Glucose Urine UA Norm (Normal); Ketones Urine Negative (Negative); Leukocyte Esterase Urine Negative (Negative); Nitrate Urine Negative (Negative); Protein Urine Trace (Negative); RBC Urine 25-40 /hpf (0-2); Squamous Epithelial Cell Urine 0-4 /hpf (0-5); Urine Appearance Cloudy (CLEAR); Urine Color Dark Yellow (Yellow); Urobilinogen Urine Norm (Negative); pH Urine 5 (5-7)
[2020-05-21 10:57] VITALS: BP 130/91; PULSE 84; RESP 18; TEMP 36.4; O2SAT 98
--- NOTE | 2020-05-21 10:57 | DCPLANNER ---
group exercise manager had message to schedule a follow up appointment for patient with Dr. Murphy. group exercise manager called the office of Dr. Murphy, spoke with Aura, gave clinic patients information. group exercise manager was told that patients information would be printed and reviewed. Clinic will call patient with appointment information.
--- NOTE | 2020-05-22 13:55 | DCPLANNER ---
Appointment scheduled for patient with Dr. Rain office has been cancelled - patients request.
== END 2020-05-21 11:01 | disposition home or self-care (01) ==
PROVIDERS: Emergency Provider Nurse Practitioner Family; PCP Surgery
DX: R10.9 Unspecified abdominal pain (principal); N50.811 Right testicular pain; E11.9 Type 2 diabetes mellitus without complications; E78.5 Hyperlipidemia, unspecified; I10 Essential (primary) hypertension; Z79.84 Long term (current) use of oral hypoglycemic drugs
CPT/HCPCS: 12345; 74150; 74176; 80053; 81001; 83605; 83690; 85025; 87086; 96361; 96374; 96375; 99283; J1170; J2270; J2405; J7030; Q9963

== ENCOUNTER 2020-05-22 11:40 | Outpatient (CLI) | payer OTHER, BC, SELFPAY ==
--- NOTE | 2020-05-22 11:51 | XR_ITS ---
WS: [id number] ABDOMEN: SUPINE FILM HISTORY: STONE COMPARISON: 05/21/2020 Mild constipation. Surgical clips over the upper abdomen from prior gastric sleeve procedure. Right kidney: 6 mm calcification just lateral to the L3 vertebral body slightly migrated inferiorly s debbie the CT. Left kidney: No renal or ureteral stone identified. XR/XR KUB [id number] IMPRESSION: Mid 6 mm RIGHT ureteral calcification, minimal inferior migration since 05/21/20 20.
== END 2020-05-22 11:41 | disposition home or self-care (01) ==
PROVIDERS: PCP Surgery; Visit Provider Urology
DX: N20.1 Calculus of ureter (principal)
CPT/HCPCS: 74018